=== PATIENT | female | born 2005 | race Caucasian/White ===

== ENCOUNTER 2024-12-09 21:16 | Emergency (ER) | payer SELFPAY ==
[~2024-12-09] VITALS: Ht 160 cm; Wt 78.0 kg
[2024-12-09 21:35] VITALS: O2SAT 100
[2024-12-09 23:23] VITALS: BP 101/50; PULSE 92; RESP 17; TEMP 36.6; O2SAT 100
== END 2024-12-09 23:31 | disposition home or self-care (01) ==
LOC: ER 21:21
DX: F12.929 Cannabis use, unspecified with intoxication, unspecified (principal); F41.9 Anxiety disorder, unspecified
CPT/HCPCS: 99283